=== PATIENT | female | born 1955 | race Caucasian/White ===

== ENCOUNTER → 2020-03-15 15:31 | Outpatient (CLI) | payer MEDICAID, SELFPAY ==
[2020-03-15 15:29] VITALS: BMI 32.5
--- NOTE | 2020-03-15 15:32 | RAD_ITS ---
STUDY: X-RAY CHEST REASON FOR EXAM: Female, 64 years old. COUGH. PT HAS BEEN EXPOSED TO SOMEONE WITH COVID TECHNIQUE: PA and lateral views of the chest. COMPARISON: None. FINDINGS: Scattered sigmoid diverticula. Hyperinflation. There is no demonstrated pleural abnormality. Normal size heart. Normal mediastinum and morena. Normal visualized pulmonary arteries. Normal visualized aortic arch and descending thoracic aorta. There are diffuse degenerative changes of the visualized thoracic spine. Normal visualized ribs, clavicles, and shoulders. There is no demonstrated abnormality of the visualized soft tissue structures of the upper abdomen. RAD/Chest PA and Lateral IMPRESSION: Hyperinflation. No acute abnormality is seen. Electronically Signed: Lefty Smith, at 15:52 EDT , Service support ,
== END ==
PROVIDERS: PCP Family Medicine; Referring Provider Physician Assistant Surgical; Visit Provider Physician Assistant Surgical
DX: Z20.828 Contact with and (suspected) exposure to other viral communicable diseases (principal)
CPT/HCPCS: 71046

== ENCOUNTER → 2020-03-17 13:24 | Outpatient (CLI) | payer MEDICAID, SELFPAY ==
[2020-03-15 15:29] VITALS: BMI 32.5
== END ==
PROVIDERS: PCP Family Medicine; Referring Provider Physician Assistant Surgical; Visit Provider Physician Assistant Surgical
DX: Z20.828 Contact with and (suspected) exposure to other viral communicable diseases (principal)
CPT/HCPCS: 87635; G2023; U0003

== ENCOUNTER 2023-03-06 11:11 | Inpatient (IN) | payer MEDICARE, MEDICAID, SELFPAY ==
[2023-03-06] VITALS (13 sets, daily range): BP systolic 120–156; BP diastolic 74–120; PULSE 78–113; RESP 14–18; TEMP 36.6–37; O2SAT 72–94; BMI 25.7; BMI 25.8
--- NOTE | 2023-03-06 11:29 | EX.ED.DYSGE1 ---
HPI History of Present Illness Chief Complaint: General Illness Informant: patient Onset/Context/Timing Onset: Days Context: Gradual Onset Timing: Continuous Current Severity: Mild Maximum Severity: Moderate Narrative Narrative: 67-year-old female history of hypertension and currently on Suboxone for narcotic prescription abuse. States she has not felt well last several days and has been short of breath. She said she felt lightheaded. With nausea but no vomiting or diarrhea. No melena or fever. Denies any chest pain. No leg pain or swelling. Denies any dysuria. Prior similar symptoms: No Recent Illness/Hospitalization: No PFSH PFSH Medical History Chest pain Difficulty balancing Fatigue Knee pain Severe headache Home Medications buprenorphine 12 mg-naloxone 3 mg sublingual film 12 ea SL DAILY 06/10/17 [History Last Taken Unknown] gabapentin 300 mg capsule 300 mg PO TIDCM 06/10/17 [History Last Taken 06/12/17] lisinopril 2.5 mg tablet 2.5 mg PO DAILY 06/10/17 [History Last Taken 06/12/17] Allergy/AdvReac Type Severity Reaction Status Date / Time cephalexin Allergy Unknown Verified 03/06/23 11:12 Family History Father Liver disease Social History Smoking Status: Current every day smoker tobacco type: cigarettes alcohol intake: never ROS ROS ED ROS Narrative 67-year-old female with generalized malaise. Shortness of breath. Review of Systems ROS Unobtainable: Denies due to encephalopathy Constitutional Constitutional ED: Denies fever(s) Eyes Eyes: Denies blurry vision ENT ENT ED: Denies ear pain Cardiovascular Cardiovascular: Denies chest pain Respiratory/Chest Respiratory/Chest: Reports dyspnea; Denies cough Gastrointestinal Gastrointestinal: Reports nausea; Denies abdominal pain, constipation, diarrhea, melena or vomiting Genitourinary Genitourinary ED: Denies dysuria Musculoskeletal Musculoskeletal: Denies arthralgias Integumentary Denies abscess Neurologic Neurologic: Denies headache(s) Psychiatric Psychiatric: Denies anxiety or depression Endocrine Endocrinology: Denies cold intolerance Hematologic/Lymphatic Hematologic/Lymphatic: Reports none Allergic/Immunologic Allergic/Immunologic ED: Denies mouth swelling or tongue swelling EXAM Physical Exam Narrative Exam Narrative: Well-appearing 67-year-old female. Vital signs stable initial pulse ox was 82% on room air consistent with hypoxia on 4 L again or 92%. She is tachycardic at 113. H EENT exam unremarkable. Dry mucous members. Neck nontender lung JVD. No lymphadenopathy. Lungs few scattered expiratory wheezes. No rales or rhonchi. Equal symmetrical. Heart tachycardic rate about 110 no murmur. Chest were nontender. Abdomen soft nontender. Moving all 4 extremities. Calves are nontender without edema or cords. Neurologically she is awake and alert with no focal motor deficits. Const Vital Signs: 03/06/23 11:12 03/06/23 11:12 03/06/23 11:12 Temperature 98.6 F Temperature Source Temporal Pulse Rate 113 H Respiratory Rate 18 Respiratory Pattern Normal Blood Pressure 156/120 H Blood Pressure Mean 132 Pulse Ox 82 92 Oxygen Delivery Method Room Air Nasal Cannula Oxygen Flow Rate (L/min) 4 03/06/23 11:52 03/06/23 13:26 03/06/23 13:29 Temperature Temperature Source Pulse Rate 94 Respiratory Rate 18 Respiratory Pattern Normal Blood Pressure Blood Pressure Mean Pulse Ox 77 82 Oxygen Delivery Method Room Air Nasal Cannula Oxygen Flow Rate (L/min) 4 03/06/23 13:30 03/06/23 13:30 03/06/23 13:32 Temperature Temperature Source Pulse Rate 89 Respiratory Rate 16 Respiratory Pattern Blood Pressure 120/74 Blood Pressure Mean 89 Pulse Ox 88 93 94 Oxygen Delivery Method Nasal Cannula Nasal Cannula Nasal Cannula Oxygen Flow Rate (L/min) 5 6 6 Positive well nourished and well developed; Negative for obese, cachectic, contractures or unkempt General Appearance ED: well developed and NAD; Negative for unkempt, cachectic, contractures, cyanotic, diaphoretic or pallor Nutritional Appearance: Negative for cachectic or obese HEENT Reports dry mucous membranes Negative for trauma or tenderness Mouth ED: Yes dry mucous membranes Mouth: dry mucous membranes Eyes PERRL and EOMs intact bilaterally General Eye ED: Negative for pale conjunctiva, scleral icterus or other Neck no lymphadenopathy, supple and no JVD General: Negative for tenderness Lymph Lymphatic: Negative for other Chest Wall inspection of chest normal and palpation of chest normal Chest: Negative for other Resp normal respiratory effort and No clear to auscultation bilaterally Auscultation: wheezes Cardio regular rhythm, S1 normal heart sound, S2 normal heart sound and no murmurs; Negative for regular rate Rate: tachycardic GI normal to inspection, nondistended, normoactive bowel sounds, non-tender, non-distended and no masses Inspection: Negative for abdominal distention Auscultation: normoactive bowel sounds Palpation: soft; Negative for tender or guarding Bladder / Kidney Exam: No other Back/Spine no CVA tenderness General Back: Negative for CVA tenderness Cervical Spine: Negative for cervical spine tenderness Thoracic Spine / Upper Back: Negative for thoracic spinal tenderness Lumbar Spine / Lower Back: Negative for lumbar spinal tenderness Extremity normal to inspection General Extremety ED: Negative for edema or tenderness General Extremity: Negative for edema Neuro oriented x3 and CN's II-XII intact bilaterally Sensorium / Orientation: alert; Negative for orientation impaired, lethargic or stuporous Motor Exam: strength 5/5 throughout Psych mental status grossly normal Appearance: Negative for unkempt Attitude: No agitated Mood & Affect: Negative for depressed, anxious or tearful Skin no rashes or lesions noted and no wounds General Skin Exam: Negative for jaundice or pallor Lesions: No lesion noted Rashes: No rashes noted Trauma: Negative for abrasion Wounds: Negative for wounds noted MDM MDM MDM Narrative Medical decision making narrative: 67-year-old female with generalized malaise and shortness of breath is hypoxic. She is currently wheezing she will be given a DuoNeb aerosol. Chest x-ray and screening labs will be obtained. Patient has no prior history of DVT or PE or any risk factors. No leg pain or swelling. No hemoptysis. No recent travel, surgery or immobilization. Patient. DuoNeb aerosol. Her pulse ox remained in the high 70s to low 80s. On 4 to 6 L oxygen she is in the mid 90s. She will be admitted for pneumonia. Started on Rocephin and Zithromax. I spoke to the hospitalist about admission. History & Record Review Discussion w/independent historian: Patient Additional record(s) reviewed:: Prior inpatient record, Prior outpatient record, Prior ED visit and Prior labs Lab Data Attestation: I reviewed the patient's lab results. Lab results narrative: CBC shows white count 20,300. H&H of 14 and 44. Platelet count 329. Electrolytes show sodium 132. Potassium 3.2. Gap of 10. BUN and creatinine 25 and 0.8. Glucose 115. Liver enzymes unremarkable. Chest x-ray suspected right upper lobe pneumonia. Labs: Laboratory Results - last 24 hr 03/06/23 03/06/23 11:45 11:45 WBC 20.3 H RBC 4.68 Hgb 14.6 Hct 44.6 MCV 95.3 MCH 31.2 MCHC 32.7 RDW Std Deviation 43.2 RDW Coeff of Aixa 12.2 Plt Count 329 MPV 10.1 Immature Gran % (Auto) 0.900 Neut % (Auto) 80.1 H Lymph % (Auto) 7.9 L [place] % (Auto) 8.6 Eos % (Auto) 2.1 Baso % (Auto) 0.4 Absolute Neuts (auto) 16.2 H Absolute Lymphs (auto) 1.60 Nucleated RBC % 0 Differential Comment SCANNED Diff Path Review May foll Sodium 132 L Potassium 3.2 L Chloride 93 L Carbon Dioxide 29.0 Anion Gap 10 BUN 25 H Creatinine 0.87 Estim Creat Clear Calc 50.99 Est GFR (MDRD) Af Amer 84 Est GFR (MDRD) Non-Af 69 BUN/Creatinine Ratio 28.8 H Glucose 115 H Calcium 9.9 Total Bilirubin 0.70 AST 22 ALT 26 Alkaline Phosphatase 113 Troponin I High Sens 10 Total Protein 8.6 H Albumin 3.6 Globulin 5.0 H Albumin/Globulin Ratio 0.7 L Radiography Chest X-Ray - ED: 2 View and Read by ED Physician Diagnostic Testing: Clinical Impression(s) from Imaging Studies Chest X-Ray 03/06/23 12:10 IMPRESSION: 1. An area of interstitial prominence and lobularity is seen near the midline of the right upper lobe just above the interlobar fissure which should be evaluated with noncontrast CT to ensure no suspicious or infectious process is present. Otherwise no consolidation is seen. Electronically Signed: Trae Carr MD at 13:26 EDT , Rhythm Strip Rhythm Strip: Sinus Rhythm Rate: 97 Ectopy: None EKG Initial EKG: Attestation: I personally reviewed and interpreted this EKG as follows: Interpretation: Sinus Rhythm and No Acute Injury Pattern Comments: Normal sinus rhythm rate of 97 no acute signs of WI or ischemia. No S1Q3T3. Critical Care Time Critical Care Time: Yes Critical care time (excluding procedures): 30-74 minutes, Including time spent:, Discussing w/Patient &/or Family/Supervisor [place], Discussing w/Consultants, Arranging Admission or Transfer, Performing Direct Patient Care at Bedside and - (35 min) Discharge Plan Triage Chief Complaint: General Illness ED Provider: Claudio Bernard Dx/Rx/DC Orders Clinical Impression: Pneumonia, Hypoxia, Leukocytosis Prescriptions: No Action gabapentin 300 MG capsule 300 mg PO TIDCM lisinopril 2.5 MG tablet 2.5 mg PO DAILY buprenorphine-naloxone 1 EACH film 12 ea SL DAILY Primary Care Provider: Lonnie Francis Referrals: Lonnie Francis MD [Primary Care Provider] - Disposition Disposition: Acute Care [facility]
--- NOTE | 2023-03-06 11:41 | EKG12_ITS ---
Test Reason : SOB Blood Pressure : / mmHG Vent. Rate : 097 BPM Atrial Rate : 097 BPM P-R Int : 120 ms QRS Dur : 068 ms QT Int : 356 ms P-R-T Axes : 072 015 058 degrees QTc Int : 452 ms Normal sinus rhythm Normal ECG Confirmed by BALDEV SHARIF, BRITTNEY ([id number]), production editor JUANITA STEVE ([id number]) on 03/08/2023 8:05:53 AM Referred By: TIMUR Confirmed By:BRITTNEY DE PAZ MD
[2023-03-06] MEDS: Ipratropium/Albuterol Sulfate 3 ML AMPUL.NEB INHALATION ×2 (11:51→19:08)
[2023-03-06 12:01] LABS: Absolute Neutrophil Count 16.2 X10^3/uL (2.0-7.7); Basophil# 0.08 X10^3/uL; Basophil% 0.4 % (0-1); Eosinophil# 0.43 X10^3/uL; Eosinophils% 2.1 % (0-5); Hematocrit 44.6 % (37-47); Hemoglobin 14.6 g/dL (12.0-15.0); Lymphocyte % 7.9 % (19-41); Mean Corp Hgb Conc 32.7 g/dL (32-36); Mean Corpuscular Hgb 31.2 pg (27.0-32.0); Mean Corpuscular Volume 95.3 fL (81-99); Mean Platelet Vol. 10.1 fl (6.2-12.0); Monocyte# 1.75 X10^3/uL; Monocyte% 8.6 % (0-10); NRBC Flagged by Analyzer 0 % (0-5); Neutrophil # 16.21 X10^3/uL (2.7-7.7); Neutrophil % 80.1 % (47-70); POSITIVE DIFFERENTIAL YES; Platelet Count 329 K/mm3 (150-450); RBC Distribution Width CV 12.2 % (11.6-14.6); RBC Distribution Width SD 43.2 fl (35.1-43.9); Red Blood Count 4.68 M/mm3 (4.2-5.4); White Blood Count 20.3 K/mm3 (4.4-11.0)
[2023-03-06 12:02] LABS: Differential Indicated SCAN CRITERIA MET
[2023-03-06] MEDS: 0.9% Normal Saline 1,000 ML 1000 ML IV (12:04)
--- NOTE | 2023-03-06 12:10 | RAD_ITS ---
STUDY: X-RAY CHEST REASON FOR EXAM: Female, 67 years old. cough TECHNIQUE: PA and lateral views of the chest. COMPARISON: March 15, 2020 FINDINGS: An area of interstitial prominence and lobularity is seen near the midline of the right upper lobe just above the interlobar fissure which should be evaluated with noncontrast CT to ensure no suspicious or infectious process is present. Otherwise no consolidation is seen. There is no demonstrated pleural abnormality. Normal size heart. Normal mediastinum and morena. Normal visualized pulmonary arteries. There is atherosclerotic tortuosity of the aortic arch and descending thoracic aorta. There are diffuse degenerative changes of the visualized thoracic spine. There is degenerative osteoarthritis of the bilateral shoulders. There is no demonstrated abnormality of the visualized soft tissue structures of the upper abdomen. RAD/Chest PA and Lateral IMPRESSION: 1. An area of interstitial prominence and lobularity is seen near the midline of the right upper lobe just above the interlobar fissure which should be evaluated with noncontrast CT to ensure no suspicious or infectious process is present. Otherwise no consolidation is seen. Electronically Signed: Trae Carr MD at 13:26 EDT ,
[2023-03-06 12:18] LABS: ALB/GLOB Ratio 0.7 RATIO (0.9-2.4); AST(SGOT) 22 U/L (15-37); Alanine Aminotransfer ALT/SGPT 26 U/L (13-56); Albumin, Serum 3.6 g/dL (3.2-5.0); Alkaline Phosphatase 113 U/L (45-117); Anion Gap 10 (5-15); BUN 25 mg/dL (7-18); BUN/Creat Ratio 28.8 RATIO (10-20); Calcium,Total 9.9 mg/dL (8.5-10.1); Chloride 93 mmol/L (98-107); Creatinine, Serum 0.87 mg/dL (0.55-1.02); EST Glomerular Filtration Rate 69 mL/min (>60); Est Glom Filt Rate - Afr Amer 84 mL/min (>60); Estimated Creatinine Clearance 50.99 ml/min; Glucose 115 mg/dL (74-106); Potassium 3.2 mmol/L (3.5-5.1); Protein, Total 8.6 g/dL (6.4-8.2); Sodium Level 132 mmol/L (136-145); Troponin-I HS 10 pg/mL (3.0-54.0)
[2023-03-06 12:25] LABS: Differential Comment SCANNED
[2023-03-06] MEDS: Ceftriaxone 1 GM/50 ML BAG IV (14:26)
[2023-03-06] MEDS: 0.9% Normal Saline 1,000 ML 999 ML IV (14:26)
--- NOTE | 2023-03-06 14:37 | PCM.HP.STD ---
HPI - General General Date of Admission: 03/06/23 Date of Service: 03/06/23 Chief Complaint: General weakness shortness of breath lightheadedness. HPI Narrative TANIKA GRAHAM, is a 67 F who was brought to ED for generalized weakness and somnolence for about 2 days. She is also short of breath and has not felt well for last couple days. She has been on and off sick for about 2 months. About 2 months ago she had bronchitis with cough, URI and chest congestion and was prescribed Z-Siddharth and steroid and she completed but she did not feel better. Her PCP prescribed 1 more course of a stronger dose which she completed about a month ago. After that she felt well until last Saturday when she felt too tired and weak and mild shortness of breath. She also felt febrile yesterday. She also feel dizzy, lightheaded and has been sleeping for the last 2 days. She has history of smoking cigarette about half to 1 pack since age of 15. She also history of opioid dependence and on Suboxone prescription. She said she forgot to take for 2 days as she was sleeping but she took Suboxone today. She denies any major symptoms of opioid withdrawal including tremors, hallucinations, illusion, seizure anxiety attack, diarrhea or muscle aches. In ED, chest x-ray done and shows infiltrate in right upper lobe. She states he had bronchopneumonia more than a month ago as mentioned above. Past medical history: Chronic nicotine dependence and history of opioid dependence in the past. Hypertension and neuropathy [facility] Medical History Chest pain Difficulty balancing Fatigue Knee pain Severe headache Home Medications buprenorphine 12 mg-naloxone 3 mg sublingual film 1.5 film SL DAILY 06/10/17 [History Last Taken 03/06/23] gabapentin 300 mg capsule 300 mg PO BID NERVE PAIN 06/10/17 [History Last Taken 03/06/23] amlodipine 10 mg tablet 10 mg PO DAILY BP 03/06/23 [History Last Taken 03/06/23] duloxetine 60 mg capsule,delayed release 60 mg PO DAILY DEPRESSION 03/06/23 [History Last Taken 03/06/23] lisinopril 10 mg-hydrochlorothiazide 12.5 mg tablet 1 tab PO DAILY BP 03/06/23 [History Last Taken 03/06/23] Allergy/AdvReac Type Severity Reaction Status Date / Time cephalexin Allergy Unknown Verified 03/06/23 11:12 Family History Father Liver disease Social History Smoking Status: Current every day smoker tobacco type: cigarettes alcohol intake: never ROS ROS Narrative Constitutional: Reports extreme fatigue and weakness. Mild feverish. HEENT: URI symptoms including mild congestion. Reports systems reviewed and no addt'l complaints, except as documented Respiratory/Chest: Admission HPI CVS: Denies history of cardiac disease including PR or cardiac stents. Gastrointestinal: Denies coffee ground emesis, hematemesis or vomiting Genitourinary: Denies burning urination or new urinary tract symptoms Musculoskeletal: Denies acute joint pain or limited range of motion. No acute injury Neurologic: Denies seizure-like symptoms. On gabapentin and duloxetine medication. skin: No ulcer. No rash Endocrinology: Reports systems reviewed and no addt'l complaints, except as documented Hematologic/Lymphatic: Reports systems reviewed and no addt'l complaints, except as documented Rest 14 ROS are negative except as mentioned in HPI Vital Signs Vital Signs Vital Signs: 03/06/23 11:12 03/06/23 11:12 03/06/23 11:12 Temperature 98.6 F Temperature Source Temporal Pulse Rate 113 H Respiratory Rate 18 Respiratory Pattern Normal Blood Pressure 156/120 H Blood Pressure Mean 132 Pulse Ox 82 92 Oxygen Delivery Method Room Air Nasal Cannula Oxygen Flow Rate (L/min) 4 03/06/23 11:52 03/06/23 13:26 03/06/23 13:29 Temperature Temperature Source Pulse Rate 94 Respiratory Rate 18 Respiratory Pattern Normal Blood Pressure Blood Pressure Mean Pulse Ox 77 82 Oxygen Delivery Method Room Air Nasal Cannula Oxygen Flow Rate (L/min) 4 03/06/23 13:30 03/06/23 13:30 03/06/23 13:32 Temperature Temperature Source Pulse Rate 89 Respiratory Rate 16 Respiratory Pattern Blood Pressure 120/74 Blood Pressure Mean 89 Pulse Ox 88 93 94 Oxygen Delivery Method Nasal Cannula Nasal Cannula Nasal Cannula Oxygen Flow Rate (L/min) 5 6 6 03/06/23 13:53 Temperature 97.8 F Temperature Source Temporal Pulse Rate 78 Respiratory Rate 16 Respiratory Pattern Blood Pressure 122/91 H Blood Pressure Mean 101 Pulse Ox 93 Oxygen Delivery Method Nasal Cannula Oxygen Flow Rate (L/min) 2 Weight Weight: 140 lb 9.6 oz Body Mass Index (BMI) 25.7 Physical Exam Narrative General: Alert, Oriented x3, Cooperative HEENT: Atraumatic, PERRLA, EOMI, Normocephalic Oral: Oral mucosa dry. No Gingival or Mucosal Lesions/ Ulcerations/erythema or inflammation Neck: Supple, No JVD, Negative Carotid Bruits Lungs: Air entry severely diminished in bilateral lung bases. Bilateral coarse crepitation Cardiovascular: Mild sinus tachycardia, Normal S1, Normal S2, No murmurs Abdomen: Bowel Sounds Present, Soft, Non Tender, Non-Distended : No renal angle tenderness. No suprapubic tenderness. Extremities: No edema, Capillary Refill Less than 3 Seconds Skin: No rashes, No breakdown Musculoskeletal: No Tenderness to Palpation of Joints or Extremities. ROM intact. Muscle strength 5/5 at major joints. Neurological: Cranial nerves II-XII grossly intact, DTR 2+/4 and Symmetrical, Neuro grossly intact Psych/Mental Status: Flat affect. Results Lab / Micro Data Result Diagrams: 03/06/23 11:45 03/06/23 11:45 Labs: Laboratory Results - last 24 hr 03/06/23 11:45: WBC 20.3 H, RBC 4.68, Hgb 14.6, Hct 44.6, MCV 95.3, MCH 31.2, MCHC 32.7, RDW Std Deviation 43.2, RDW Coeff of Aixa 12.2, Plt Count 329, MPV 10.1, Immature Gran % (Auto) 0.900, Neut % (Auto) 80.1 H, Lymph % (Auto) 7.9 L, [place] % (Auto) 8.6, Eos % (Auto) 2.1, Baso % (Auto) 0.4, Absolute Neuts (auto) 16.2 H, Absolute Lymphs (auto) 1.60, Nucleated RBC % 0, Differential Comment SCANNED, Diff Path Review January03/06/23 11:45: Sodium 132 L, Potassium 3.2 L, Chloride 93 L, Carbon Dioxide 29.0, Anion Gap 10, BUN 25 H, Creatinine 0.87, Estim Creat Clear Calc 50.99, Est GFR (MDRD) Af Amer 84, Est GFR (MDRD) Non-Af 69, BUN/Creatinine Ratio 28.8 H, Glucose 115 H, Calcium 9.9, Total Bilirubin 0.70, AST 22, ALT 26, Alkaline Phosphatase 113, Troponin I High Sens 10, Total Protein 8.6 H, Albumin 3.6, Globulin 5.0 H, Albumin/Globulin Ratio 0.7 L Micro: Microbiology 03/06/23 11:45 Nasal Secretion SARS-CoV-2 & FLU Antigen (Rapid) - Final Rhythm Strip Rhythm Strip: Sinus Rhythm Rate: 97 Ectopy: None Radiology Impression Chest X-Ray 03/06/23 12:10 IMPRESSION: 1. An area of interstitial prominence and lobularity is seen near the midline of the right upper lobe just above the interlobar fissure which should be evaluated with noncontrast CT to ensure no suspicious or infectious process is present. Otherwise no consolidation is seen. Electronically Signed: Trae Carr MD at 13:26 EDT , Assessment & Plan Assessment/Plan (1) Pneumonia: PLAN: Plan This 67-year-old female is being admitted for atypical symptoms of pneumonia including mild shortness of breath and feverish but had recent bronchopneumonia about 1 to 2 months ago. 1. Right upper lobe pneumonia: Patient is being admitted in PCU. She is on 6 L of oxygen with mild cough. Chest x-ray individually reviewed and shows mild infiltrate/laboratory in the right upper lobe and above interlobar fissure. CT angiogram ordered as patient was somnolent did not move for 2 to 3 days and sinus tachycardia, modified Wells criteria 3. CT also will also elucidate about the lobularity/interstitial prominence seen in chest x-ray. Patient started on IV ceftriaxone and Zithromax. Patient has allergy unknown of cephalexin but she tolerated in ED therefore will continue ceftriaxone. Pneumonia work-up ordered. 2. Suspected COPD with exacerbation: Patient has mild cough with hypoxia and shortness of breath. IV Solu-Medrol, bronchodilator, incentive spirometry, Pep and Mucinex ordered. 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 Her PCP has prescribed 2 prescriptions 1 of which is albuterol inhaler. Advised follow-up in pulmonary clinic as an outpatient. 3. History of opioid use/dependence in the past with possible history of generalized anxiety disorder: Patient on buprenorphine?naloxone sublingual film, nonformulary but continued as patient is on medication. No major symptoms of acute opioid withdrawal symptoms. Patient on gabapentin and duloxetine continued. 4. Hypertension: Blood pressure was elevated when she came to ED but currently normal. On lisinopril HCTZ continued. 5. Chronic smoker: Patient is smokes about 1 pack per daily. Nicotine patch ordered. Living will/advanced directive/end of life care: Patient does not have living will or advanced directive. After discussion of benefits/risks procedures involved with full code, DNR CC arrest and DNR CC, the patient opted for DNRCC arrest with no intubation. She does not want intubation ventilator as a last resort to save her if noninvasive pressure ventilation fails. Patient doesn't want artificial life support including intubation, tube feed, ventilator and/chest compression, central venous catheter, vasopressor and DC shock if needed Total time spent in [id number] encounter in discussion of advanced directive 17 minutes. Microbiology Past 72 Hours 03/06/23 11:45 Nasal Secretion SARS-CoV-2 & FLU Antigen (Rapid) - Final Laboratory Results 03/06/23 11:45: WBC 20.3 H, RBC 4.68, Hgb 14.6, Hct 44.6, MCV 95.3, MCH 31.2, MCHC 32.7, RDW Std Deviation 43.2, RDW Coeff of Aixa 12.2, Plt Count 329, MPV 10.1, Immature Gran % (Auto) 0.900, Neut % (Auto) 80.1 H, Lymph % (Auto) 7.9 L, [place] % (Auto) 8.6, Eos % (Auto) 2.1, Baso % (Auto) 0.4, Absolute Neuts (auto) 16.2 H, Absolute Lymphs (auto) 1.60, Nucleated RBC % 0, Differential Comment SCANNED, Diff Path Review January03/06/23 11:45: Sodium 132 L, Potassium 3.2 L, Chloride 93 L, Carbon Dioxide 29.0, Anion Gap 10, BUN 25 H, Creatinine 0.87, Estim Creat Clear Calc 50.99, Est GFR (MDRD) Af Amer 84, Est GFR (MDRD) Non-Af 69, BUN/Creatinine Ratio 28.8 H, Glucose 115 H, Calcium 9.9, Total Bilirubin 0.70, AST 22, ALT 26, Alkaline Phosphatase 113, Troponin I High Sens 10, Total Protein 8.6 H, Albumin 3.6, Globulin 5.0 H, Albumin/Globulin Ratio 0.7 L 03/06/23 11:45: Phosphorus Pending, Magnesium Pending Clinical Impression(s) from Imaging Studies Chest X-Ray 03/06/23 12:10 IMPRESSION: 1. An area of interstitial prominence and lobularity is seen near the midline of the right upper lobe just above the interlobar fissure which should be evaluated with noncontrast CT to ensure no suspicious or infectious process is present. Otherwise no consolidation is seen. Electronically Signed: Trae Carr MD at 13:26 EDT Reading Location ID and State: [facility] / [place] , Service support , Charges/Coding Visit Charges Inpatient E&M: 76628 Init Hosp L3 Procedures Hospitalists Procedures: 96569 Advncd Care Plan 30 Min
--- NOTE | 2023-03-06 15:07 | CT_ITS ---
STUDY: CTA CHEST REASON FOR EXAM: Female, 67 years old. R/O PE -- SOB, Pneumonia,LUNG TUMOR RADIATION DOSAGE (If Supplied By Facility): CTDIvol = ( 6.09 ) mGy, DLP = ( 267.33 ) mGycm TECHNIQUE: The examination was performed with the intravenous administration of IV 100mL Isovue-370. Post-processing of the angiographic images was performed, with multiplanar reformation and 3D reconstruction. Individualized dose optimization techniques were used for this CT. COMPARISON: FINDINGS: Normal enhancement of the main pulmonary artery and right and left pulmonary arteries. Normal enhancement of the bilateral peripheral pulmonary arteries. There is no demonstrated pulmonary embolism. Normal thoracic aorta and visualized great vessels. There is no demonstrated aortic dissection. Normal heart and pericardium. Mild adenopathy in the mediastinum. Normal hilar regions. Normal visualized trachea and bronchi. The lungs are well expanded. Patchy bilateral infiltrates. Normal pleura. Normal chest wall structures. Degenerative vertebral changes. Normal visualized upper abdomen. CT/CTA Chest W/WO Contrast IMPRESSION: No demonstrated pulmonary embolism or arterial dissection. Bilateral patchy infiltrates. Mild mediastinal adenopathy. Electronically Signed: Velasquez Atkinson DO at 18:25 EDT Reading Location ID and State: [facility] / [place] Tel [phone], Service support ,
[2023-03-06 15:10] LABS: Magnesium 2.2 mg/dL (1.6-2.6); Phosphorus 2.5 mg/dL (2.5-4.9)
[2023-03-06] MEDS: KCL 20MEQ in 0.9% NS 20 MEQ/1,000 ML IV.SOLN. 75 MEQ IV (16:38)
[2023-03-06] MEDS: Potassium Chloride Oral Tablet 20 MEQ 40 MEQ PO ×2 (16:45→18:13)
[2023-03-06] MEDS: guaiFENesin 1,200 MG Tablet 1200 MG PO ×2 (16:45→20:31)
[2023-03-06] MEDS: Enoxaparin 40 MG/0.4 ML Syringe SC (16:45)
[2023-03-06] MEDS: Gabapentin 300 MG Capsule PO (18:13)
[2023-03-06] MEDS: Senna/Docusate Sodium 1 Tablet 2 TABLET PO (20:31)
[2023-03-06] MEDS: Methylprednisolone Sod Succ 40 MG/ML VIAL IV (20:31)
[2023-03-06] MEDS: BUPRENORPHINE HCL/NALOXONE HCL 1 EACH FILM 1.5 EACH SL (20:35)
[2023-03-06 20:48] LABS: Bacteria 0 SEEN /hpf (None Seen); Mucous, Urine 0 SEEN /hpf (<or=2+)
[2023-03-06 21:03] LABS: Color, Urine Yellow (Yellow); Glucose, Dipstick Normal (Normal); Leukocyte Esterase-Dipstick Negative /ul (Negative); Nitrite-Dipstick Negative (Negative); Occult Blood-Urine 150 /ul (Negative); Protein-Dipstick 30 mg/dl (Negative); Specific Gravity, Urine 1.015 (1.002-1.030); Urine Bilirubin Dipstick Negative (Negative); Urine Clarity Sl. Cloudy (Clear); Urine Urobilinogen Normal (Normal)
[2023-03-06 21:30] LABS: Ketone-Dipstick 150 mg/dl (Negative)
[2023-03-06 21:32] LABS: Red Blood Cells-Urine 10-25 SEEN /hpf (0-5); White Blood Cells 0-5 SEEN /hpf (0-5)
[2023-03-06 21:33] LABS: Amorphous Sediment 1+ URATE; Squamous Epithelial Cells - UA 0-5 SEEN /hpf (5-10)
[2023-03-07] VITALS (10 sets, daily range): BP systolic 109–131; BP diastolic 59–79; PULSE 82–98; RESP 16–20; TEMP 36.3–37; O2SAT 92–97
[2023-03-07] MEDS: Ipratropium/Albuterol Sulfate 3 ML AMPUL.NEB INHALATION ×4 (01:45→19:29)
[2023-03-07] MEDS: KCL 20MEQ in 0.9% NS 20 MEQ/1,000 ML IV.SOLN. 75 MEQ IV (05:33)
[2023-03-07] MEDS: Methylprednisolone Sod Succ 40 MG/ML VIAL IV ×3 (05:35→21:59)
[2023-03-07 06:57] LABS: Thyroid Stim Hormone (TSH) 0.49 uIU/mL (0.358-3.74)
[2023-03-07 07:36] LABS: Anion Gap 6 (5-15); BUN 14 mg/dL (7-18); BUN/Creat Ratio 21.7 RATIO (10-20); Calcium,Total 9.4 mg/dL (8.5-10.1); Chloride 103 mmol/L (98-107); Creatinine, Serum 0.64 mg/dL (0.55-1.02); EST Glomerular Filtration Rate 98 mL/min (>60); Est Glom Filt Rate - Afr Amer 119 mL/min (>60); Estimated Creatinine Clearance 69.31 ml/min; Glucose 121 mg/dL (74-106); Magnesium 2.3 mg/dL (1.6-2.6); Phosphorus 2.5 mg/dL (2.5-4.9); Potassium 4.3 mmol/L (3.5-5.1); Sodium Level 139 mmol/L (136-145)
[2023-03-07 07:47] LABS: Absolute Lymphocyte Count 0.64 X10^3/uL (0.83-4.51); Absolute Neutrophil Count 11.2 X10^3/uL (2.0-7.7); Basophil# 0.04 X10^3/uL; Basophil% 0.3 % (0-1); Eosinophil# 0.73 X10^3/uL; Eosinophils% 5.5 % (0-5); Hematocrit 38.8 % (37-47); Hemoglobin 12.2 g/dL (12.0-15.0); Lymphocyte # 0.64 X10^3/ul (0.83-4.51); Lymphocyte % 4.8 % (19-41); Mean Corp Hgb Conc 31.4 g/dL (32-36); Mean Corpuscular Hgb 30.7 pg (27.0-32.0); Mean Corpuscular Volume 97.5 fL (81-99); Mean Platelet Vol. 9.9 fl (6.2-12.0); Monocyte# 0.48 X10^3/uL; Monocyte% 3.6 % (0-10); NRBC Flagged by Analyzer 0 % (0-5); Neutrophil # 11.23 X10^3/uL (2.7-7.7); Neutrophil % 84.7 % (47-70); POSITIVE MORPHOLOGY YES; Platelet Count 303 K/mm3 (150-450); RBC Distribution Width CV 12.1 % (11.6-14.6); RBC Distribution Width SD 43.8 fl (35.1-43.9); Red Blood Count 3.98 M/mm3 (4.2-5.4); White Blood Count 13.3 K/mm3 (4.4-11.0)
[2023-03-07 08:08] LABS: Differential Indicated SCAN CRITERIA MET
[2023-03-07] MEDS: Gabapentin 300 MG Capsule PO ×3 (08:27→17:04)
[2023-03-07] MEDS: amLODIPine 10 MG Tablet PO (08:31)
[2023-03-07] MEDS: Senna/Docusate Sodium 1 Tablet 2 TABLET PO (08:31)
[2023-03-07] MEDS: DULoxetine Hcl 60 MG Capsule PO (08:32)
[2023-03-07] MEDS: guaiFENesin 1,200 MG Tablet 1200 MG PO ×2 (08:32→21:58)
[2023-03-07] MEDS: Enoxaparin 40 MG/0.4 ML Syringe SC (08:32)
[2023-03-07] MEDS: Lisinopril 10 MG Tablet PO (08:33)
[2023-03-07 08:51] LABS: Differential Comment SCANNED
[2023-03-07] MEDS: BUPRENORPHINE HCL/NALOXONE HCL 1 EACH FILM 1.5 EACH SL (08:53)
[2023-03-07 09:37] LABS: Pathologist Review Reviewed
--- NOTE | 2023-03-07 11:20 | CASEMGMT ---
RN?CM?GRADUATE CIVIL ENGINEER?CM?to room to meet with patient for initial transition planning/care coordination?assessment.?RN?CM?introduced self and role at [facility].? Pt voices understanding and consents to?assessment?at this time.? Pt resting in bed in no distress at this time.? Pt is A/O at this time and answers all questions appropriately.?? Care providers, pharmacy, and demographics verified/updated at this time. PCP: Dr Francis Specialists: Dr Washington @ in [place] (For Subaxone). Pt states she checks in every other Thurs w/[place] @ the building. Preferred Pharmacy: [facility] @ [place] [facility], she uses [facility] home delivery. Insurance: [facility] Dual Prescription Benefit:?Yes Living Will/HPOA:?Pt does not currently have LW/HCPOA and interested in completing. Shereen MALDONADO, aware. LNOK: Sister, Vannesa. Living Arrangements: Lives alone in one-story home w/one small step to enter into the home w/an additional 7 steps from where she cui. Indep w/ADL's and IADL's. Works part-time. Transportation:?Pt states drives self and states no transportation concerns at this time.?Sis or bro-in-law will take her home @ [place]. DME: ? Denies using any DME and denies needs.?No home O2 and does not have a pulse ox. Discussed Home O2 process, should she qualify for it. Verbal review of local DME co's and made aware [employer] is affiliated w/[facility]. Pt chooses [employer]. Recommended a pulse ox. Pt states she can afford to purchase one and made aware of locations one can be found. HHC/SNF: No hx of either. Denies need for HHC and no needs identified. Pt wishes to return home and states has no concerns with going home at time of discharge.? Pt states she smokes 1/2- 1 PPD but plans to quit now. ?CM?to follow for home oxygen needs and any further discharge planning/needs.? Pt voices no further concerns/needs at this time.? Advised pt to ask for?CM?if any further questions/concerns/needs arise.? Voices understanding. PLAN:??Home. Follow for possible Home O2 @ d/c. Delvin FRAZIERN?RN?CM
--- NOTE | 2023-03-07 11:39 | PN.HOSP_ITS ---
Reason for Visit Reason for Visit: Diagnoses Pneumonia, unspecified organism (03/06/23) Subjective Subjective Patient just returning to bed from bathroom upon visit, O2 in place at 4lpm via NC and extension tubing; patient denies increased work of breathing but acknowledges that she is breathing faster than normal. Patient is pleasant, cooperative, and interactive w/staff. States that compared to when I came in, I feel like a 9.5 now, with 10 being I feel absolutely great. Objective Data Objective Data Vital Signs: Vital Signs Temp Pulse Resp BP Pulse Ox O2 Del Method O2 Flow Rate 98.6 F 85 16 131/79 H 92 Nasal Cannula 4 03/07/23 08:26 03/07/23 08:26 03/07/23 08:26 03/07/23 08:26 03/07/23 08:26 03/07/23 09:56 03/07/23 09:56 Oxygen Flow Rate (L/min) 4 Oxygen Delivery Method Nasal Cannula Weight: 64 kg Body Mass Index (BMI) 25.8 Intake & Output: Intake and Output for Last 24 Hours 03/05/23 03/06/23 03/07/23 23:59 23:59 23:59 Intake Total 2305 / 2305 305 / 305 Output Total 300 / 300 Balance 2004 305 / 305 Lab / Micro Data Result Diagrams: 03/07/23 04:48 03/07/23 04:48 Labs: Laboratory Results - last 24 hr 03/06/23 11:45: WBC 20.3 H, RBC 4.68, Hgb 14.6, Hct 44.6, MCV 95.3, MCH 31.2, MCHC 32.7, RDW Std Deviation 43.2, RDW Coeff of [place]ix[place] 12.2, Plt Count 329, MPV 10.1, Immature Gran % (Auto) 0.900, Neut % (Auto) 80.1 H, Lymph % (Auto) 7.9 L, [place] % (Auto) 8.6, Eos % (Auto) 2.1, Baso % (Auto) 0.4, Absolute Neuts (auto) 16.2 H, Absolute Lymphs (auto) 1.60, Nucleated RBC % 0, Differential Comment SCANNED, Diff Path Review Reviewed 03/06/23 11:45: Sodium 132 L, Potassium 3.2 L, Chloride 93 L, Carbon Dioxide 29.0, Anion Gap 10, BUN 25 H, Creatinine 0.87, Estim Creat Clear Calc 50.99, Est GFR (MDRD) Af Amer 84, Est GFR (MDRD) Non-Af 69, BUN/Creatinine Ratio 28.8 H, Glucose 115 H, Calcium 9.9, Total Bilirubin 0.70, AST 22, ALT 26, Alkaline Phosphatase 113, Troponin I High Sens 10, Total Protein 8.6 H, Albumin 3.6, Globulin 5.0 H, Albumin/Globulin Ratio 0.7 L 03/06/23 11:45: Phosphorus 2.5, Magnesium 2.2 03/06/23 15:15: Urine Color Yellow, Urine Clarity Sl. Cloudy, Urine pH 5.0, Ur Specific [place] 1.015, Urine Protein 30 H, Urine Glucose (UA) Normal, Urine Ketones 150 A*, Urine Occult Blood 150 H, Urine Nitrite Negative, Urine Biliru bin Negative, Urine Urobilinogen Normal, Ur Leukocyte Esterase Negative, Urine RBC 10-25 SEEN, Urine WBC 0-5 SEEN, Ur Squamous Epith Cells 0-5 SEEN, Amorphous Sediment 1+ URATE, Urine Bacteria 0 SEEN, Urine Mucus 0 SEEN 03/06/23 15:35: COVID-19 (DARIN) Not Detected 03/07/23 04:48: TSH 0.49 03/07/23 04:48: WBC 13.3 H, RBC 3.98 L, Hgb 12.2, Hct 38.8, MCV 97.5, MCH 30.7, MCHC 31.4 L, RDW Std Deviation 43.8, RDW Coeff of [place]ix[place] 12.1, Plt Count 303, MPV 9.9, Immature Gran % (Auto) 1.100 H, Neut % (Auto) 84.7 H, Lymph % (Auto) 4.8 L, [place] % (Auto) 3.6, Eos % (Auto) 5.5 H, Baso % (Auto) 0.3, Absolute Neuts (auto) 11.2 H, Absolute Lymphs (auto) 0.64 L, Nucleated RBC % 0, Differential Comment SCANNED 03/07/23 04:48: Sodium 139, Potassium 4.3, Chloride 103, Carbon Dioxide 30.0, Anion Gap 6, BUN 14, Creatinine 0.64, Estim Creat Clear Calc 69.31, Est GFR (MDRD) Af Amer 119, Est GFR (MDRD) Non-Af 98, BUN/Creatinine Ratio 21.7 H, Glucose 121 H, Calcium 9.4, Phosphorus 2.5, Magnesium 2.3 Micro: Microbiology 03/06/23 15:35 Mucosa - Nose Respiratory Panel (PCR) - Final Rhinovirus 03/06/23 15:15 Urine, Clean Catch Legionella Antigen - Final 03/06/23 15:15 Urine, Clean Catch Streptococcus pneumoniae Antigen (M - Final 03/06/23 11:45 Nasal Secretion SARS-CoV-2 & FLU Antigen (Rapid) - Final Radiography Diagnostic Testing: Radiology Impression Chest X-Ray 03/06/23 12:10 IMPRESSION: 1. An area of interstitial prominence and lobularity is seen near the midline of the right upper lobe just above the interlobar fissure which should be evaluated with noncontrast CT to ensure no suspicious or infectious process is present. Otherwise no consolidation is seen. Electronically Signed: Trae Carr MD at 13:26 EDT , Chest CTA 03/06/23 15:07 IMPRESSION: No demonstrated pulmonary embolism or arterial dissection. Bilateral patchy infiltrates. Mild mediastinal adenopathy. Electronically Signed: Velasquez Atkinson DO at 18:25 EDT , Rhythm Strip Rhythm Strip: Sinus Rhythm Rate: 97 Ectopy: None Physical Exam Const Constitutional Narrative: Alert, oriented x3,average body habitus, pleasant, and cooperative with staff. HEENT head/scalp atraumatic and moist oral mucous membranes Eyes PERRL and EOMs intact bilaterally Neck supple and no JVD Chest Chest Narrative: Symmetrical chest wall with equal excursion Resp Resp Narrative: Increased respiratory effort with some use of neck and shoulder accessory muscle status post ambulation. Lung sounds are clear throughout but diminished with limited air movement in the right upper lobe anterior and posterior. Productive cough at times, sputum clear. Cardio regular rate, regular rhythm, S1 normal heart sound, S2 normal heart sound, no murmurs, no rub and no gallops GI normal to inspection, nondistended, normoactive bowel sounds, soft to palpation and non-tender; Negative for hepatosplenomegaly Back/Spine normal ROM Extremity normal to inspection, full ROM and no clubbing, cyanosis or edema Neuro CN's II-XII intact bilaterally, moves all extremities, no focal motor deficits and no sensory deficits noted Motor Exam: strength 5/5 throughout Psych affect normal Assessment & Plan Assessment/Plan (1) Pneumonia: (2) Hypoxia: (3) Leukocytosis: (4) URI, acute: PLAN: Plan 1. Pneumonia secondary to acute URI/leukocytosis/hypoxia - CXR showing right upper lobe interstitial prominence, correlated with leukocytosis and physical exam findings on admission represent pneumonia - 03/07: leukocytosis reducing, continue azithromycin and ceftriaxone - positive for Rhino virus, maintain Droplet precautions - demonstrates increase in work of breathing w/exertion and requiring oxygen to maintain pulse oximetry greater than 92%; oxygen delivery reduced from 6L to 4L this AM and patient tolerated well - patient on albuterol at home for reportedly borderline COPD diagnosis from smoking; she denies having a medical insurance clerk and states that rescue inhaler comes from PCP. - continue albuterol INH and steroid - recommended pulmonology follow up - pt demonstrating appropriate use of PEP devices 2. opioid dependence/narcotic prescription abuse - pt states being clean of prescription opioids for eight years now, routinely participates in counseling for history of opioid abuse and regularly takes her Suboxone and does routine urine drug tests thru her counseling program 3. neuropathy - patient has a history of back injury that led to opioid abuse, residual nerve pain to bilateral lower extremities at times - continue home regimen of gabapentin 4. hypertension - BPs trending 110-133/74-91mmHg - continue home regimen of lisinopril 5. depression - pt denies anhedonia; is pleasant and interactive with staff; no flat affect noted - continue home regimen of duloxetine 6. tobacco dependence - patient admittedly smokes 1/2 to 1 ppd and has smoked since she was 15 years old; she denies having any desire to stop - counseled on cessation DVT: Lovenox
--- NOTE | 2023-03-07 11:54 | PN.HOSP_ITS ---
Subjective Subjective Feels a little bit better today, still some shortness of breath. Her white count is improved. Objective Data Objective Data Vital Signs: Vital Signs Temp Pulse Resp BP Pulse Ox O2 Del Method O2 Flow Rate 98.6 F 85 16 131/79 H 92 Nasal Cannula 4 03/07/23 08:26 03/07/23 08:26 03/07/23 08:26 03/07/23 08:26 03/07/23 08:26 03/07/23 09:56 03/07/23 09:56 Oxygen Flow Rate (L/min) 4 Oxygen Delivery Method Nasal Cannula Weight: 141 lb 1.533 oz Body Mass Index (BMI) 25.8 Intake & Output: Intake and Output for Last 24 Hours 03/06/23 03/07/23 03/08/23 03:59 03:59 03:59 Intake Total 2305 / 2305 305 / 305 Output Total 300 / 300 Balance 2004 305 / 305 Lab / Micro Data Result Diagrams: 03/07/23 04:48 03/07/23 04:48 Labs: Laboratory Results - last 24 hr 03/06/23 11:45: WBC 20.3 H, RBC 4.68, Hgb 14.6, Hct 44.6, MCV 95.3, MCH 31.2, MCHC 32.7, RDW Std Deviation 43.2, RDW Coeff of Aixa 12.2, Plt Count 329, MPV 10.1, Immature Gran % (Auto) 0.900, Neut % (Auto) 80.1 H, Lymph % (Auto) 7.9 L, [place] % (Auto) 8.6, Eos % (Auto) 2.1, Baso % (Auto) 0.4, Absolute Neuts (auto) 16.2 H, Absolute Lymphs (auto) 1.60, Nucleated RBC % 0, Differential Comment SCANNED, Diff Path Review Reviewed 03/06/23 11:45: Sodium 132 L, Potassium 3.2 L, Chloride 93 L, Carbon Dioxide 29.0, Anion Gap 10, BUN 25 H, Creatinine 0.87, Estim Creat Clear Calc 50.99, Est GFR (MDRD) Af Amer 84, Est GFR (MDRD) Non-Af 69, BUN/Creatinine Ratio 28.8 H, Glucose 115 H, Calcium 9.9, Total Bilirubin 0.70, AST 22, ALT 26, Alkaline Phosphatase 113, Troponin I High Sens 10, Total Protein 8.6 H, Albumin 3.6, Globulin 5.0 H, Albumin/Globulin Ratio 0.7 L 03/06/23 11:45: Phosphorus 2.5, Magnesium 2.2 03/06/23 15:15: Urine Color Yellow, Urine Clarity Sl. Cloudy, Urine pH 5.0, Ur Specific [place] 1.015, Urine Protein 30 H, Urine Glucose (UA) Normal, Urine Ketones 150 A*, Urine Occult Blood 150 H, Urine Nitrite Negative, Urine Bilirubin Negative, Urine Urobilinogen Normal, Ur Leukocyte Esterase Negative, Urine RBC 10-25 SEEN, Urine WBC 0-5 SEEN, Ur Squamous Epith Cells 0-5 SEEN, Amorphous Sediment 1+ URATE, Urine Bacteria 0 SEEN, Urine Mucus 0 SEEN 03/06/23 15:35: COVID-19 (DARIN) Not Detected 03/07/23 04:48: TSH 0.49 03/07/23 04:48: WBC 13.3 H, RBC 3.98 L, Hgb 12.2, Hct 38.8, MCV 97.5, MCH 30.7, MCHC 31.4 L, RDW Std Deviation 43.8, RDW Coeff of Aixa 12.1, Plt Count 303, MPV 9.9, Immature Gran % (Auto) 1.100 H, Neut % (Auto) 84.7 H, Lymph % (Auto) 4.8 L, [place] % (Auto) 3.6, Eos % (Auto) 5.5 H, Baso % (Auto) 0.3, Absolute Neuts (auto) 11.2 H, Absolute Lymphs (auto) 0.64 L, Nucleated RBC % 0, Differential Comment SCANNED 03/07/23 04:48: Sodium 139, Potassium 4.3, Chloride 103, Carbon Dioxide 30.0, Anion Gap 6, BUN 14, Creatinine 0.64, Estim Creat Clear Calc 69.31, Est GFR (MDRD) Af Amer 119, Est GFR (MDRD) Non-Af 98, BUN/Creatinine Ratio 21.7 H, Glucose 121 H, Calcium 9.4, Phosphorus 2.5, Magnesium 2.3 Micro: Microbiology 03/06/23 15:35 Mucosa - Nose Respiratory Panel (PCR) - Final Rhinovirus 03/06/23 15:15 Urine, Clean Catch Legionella Antigen - Final 03/06/23 15:15 Urine, Clean Catch Streptococcus pneumoniae Antigen (M - Final 03/06/23 11:45 Nasal Secretion SARS-CoV-2 & FLU Antigen (Rapid) - Final Radiography Diagnostic Testing: Radiology Impression Chest X-Ray 03/06/23 12:10 IMPRESSION: 1. An area of interstitial prominence and lobularity is seen near the midline of the right upper lobe just above the interlobar fissure which should be evaluated with noncontrast CT to ensure no suspicious or infectious process is present. Otherwise no consolidation is seen. Electronically Signed: Trae Carr MD at 13:26 EDT , Chest CTA 03/06/23 15:07 IMPRESSION: No demonstrated pulmonary embolism or arterial dissection. Bilateral patchy infiltrates. Mild mediastinal adenopathy. Electronically Signed: Velasquez Atkinson DO at 18:25 EDT , Rhythm Strip Rhythm Strip: Sinus Rhythm Rate: 97 Ectopy: None Physical Exam Narrative General: Alert, Oriented x3, Cooperative, No apparent distress HEENT: Atraumatic, PERRLA, EOMI, Normocephalic Oral: Moist Mucosa Neck: Supple, No JVD Lungs: Diminished, poor air movement, No rhonchi, No wheeze, No rales Cardiovascular: Regular rate, Regular Rhythm, Normal S1, Normal S2, No murmurs Abdomen: Soft, Non Tender, Non-Distended, No Hepato-splenomegaly Extremities: No edema, Capillary Refill Less than 3 Seconds Skin: No rashes, No breakdown Musculoskeletal: No Tenderness to Palpation of Joints or Extremities Neurological: Motor Exam 5/5 strength throughout, Sensory exam intact to light touch and pain Psych/Mental Status: Normal Affect, Appropriate Assessment & Plan Assessment/Plan (1) Pneumonia: PLAN: Plan 1. Right upper lobe pneumonia/COPD exacerbation ? She does have increased shortness of breath and poor air movement ? Continue with steroids, inhalers, and antibiotics ? She is positive for rhinovirus and sputum cultures pending ? She does state that she uses her rescue inhaler 3-4 times a day and she does not have a canned food reconditioning inspector, she does need to be followed up with a canned food reconditioning inspector as an outpatient to obtain PFTs have maintenance inhalers 2. HTN ? Stable ? Continue with her home blood pressure medications 3. History of opioid use/anxiety/depression ? Stable ? Continue with her Cymbalta and her Subutex DVT: Lovenox Charges/Coding Visit Charges Inpatient E&M: 35701 Subs Hosp L2
[2023-03-07] MEDS: BUPRENORPHINE HCL/NALOXONE HCL 1 EACH FILM 0.5 EACH SL ×2 (13:46→22:03)
--- NOTE | 2023-03-07 14:01 | CASEMGMT ---
Sw presented to bedside, introduced self to patient and explained sw role during admission. Sw completed SDOH with patient. SDOH triggered for concerns with housing. Patient reports that her concerns with her housing are that she is worried that the air is very dry and that is what is causing her medical issues. Patient reports that her landlord will assist with things that need to be fixed, and he did get new heating and cooling elements. Patient states that sometimes the heater is still not the best so she uses a space heater to help heat her apartment. Patient states that because she uses the space heater it makes the air extra dry in the apartment. Sw agreed to look into resources that may be able to assist with this. Sw also assisted patient in completing Advanced Directives including POA and Living Will. Sw made copies and provided those to patient. Sw had copy scanned into patient's medical record. Shereen Em, RESPIRATORY CARE PRACTITIONER, HYPO SPLASHER
[2023-03-08] VITALS (7 sets, daily range): BP systolic 115–137; BP diastolic 68–80; PULSE 86–100; RESP 18; TEMP 36.4–36.7; O2SAT 86–94; BMI 26.0
[2023-03-08] MEDS: Ipratropium/Albuterol Sulfate 3 ML AMPUL.NEB INHALATION ×3 (01:46→13:03)
[2023-03-08] MEDS: BUPRENORPHINE HCL/NALOXONE HCL 1 EACH FILM 0.5 EACH SL ×2 (05:30→16:00)
--- NOTE | 2023-03-08 10:43 | PCM.PN.HOSP ---
Reason for Visit Reason for Visit: Diagnoses Elevated white blood cell count, unspecified (03/06/23) Acute upper respiratory infection, unspecified (03/06/23) Pneumonia, unspecified organism (03/06/23) Hypoxemia (03/06/23) Subjective Subjective Reports feeling so much better, being independent in her room has helped; denies feeling short of breath; continues on oxygen via NC, down to 3L now. She has noticed that she has the shakes in her hands mostly and related this to not having had a cigarette in a few days. She remains pleasant and cooperative w/staff. Objective Data Objective Data Vital Signs: Vital Signs Temp Pulse Resp BP Pulse Ox O2 Del Method O2 Flow Rate 98.1 F 91 18 115/68 94 Nasal Cannula 3 03/08/23 03:34 03/08/23 06:52 03/08/23 06:52 03/08/23 03:34 03/08/23 06:52 03/08/23 06:52 03/08/23 06:52 Oxygen Flow Rate (L/min) 3 Oxygen Delivery Method Nasal Cannula Weight: 64.6 kg Body Mass Index (BMI) 26.0 Intake & Output: Intake and Output for Last 24 Hours 03/06/23 03/07/23 03/08/23 23:59 23:59 23:59 Intake Total 2305 / 2305 305 / 305 Output Total 300 / 300 600 / 600 700 / 700 Balance 2004 / 2004 -295 / -295 -700 / -700 Lab / Micro Data Result Diagrams: 03/07/23 04:48 03/07/23 04:48 Micro: Microbiology 03/07/23 06:53 Sputum, Expectorated/Coughed Respiratory Culture - Preliminary GNR lactose ad operations specialist 03/06/23 15:35 Mucosa - Nose Respiratory Panel (PCR) - Final Rhinovirus 03/06/23 15:15 Urine, Clean Catch Legionella Antigen - Final 03/06/23 15:15 Urine, Clean Catch Streptococcus pneumoniae Antigen (M - Final 03/06/23 11:45 Nasal Secretion SARS-CoV-2 & FLU Antigen (Rapid) - Final Rhythm Strip Rhythm Strip: Sinus Rhythm Rate: 97 Ectopy: None Physical Exam Const alert, oriented x3, no apparent distress, average body habitus and healthy appearing HEENT head/scalp atraumatic and moist oral mucous membranes Eyes PERRL and EOMs intact bilaterally Neck supple and no JVD Chest inspection of chest normal Chest: symmetrical chest wall rise Resp Resp Narrative: Normal respiratory effort, no retractions, no use of accessory muscles; Expiratory wheezing to bilateral upper lobes, fine rales to left lower lobe; minimally productful cough of clear expectorate. Cardio regular rate, regular rhythm, S1 normal heart sound, S2 normal heart sound, no murmurs, no rub and no gallops GI normal to inspection, nondistended, normoactive bowel sounds, soft to palpation and non-tender; Negative for hepatosplenomegaly Back/Spine normal ROM Extremity normal to inspection and full ROM Neuro CN's II-XII intact bilaterally, moves all extremities, no focal motor deficits and no sensory deficits noted Speech: speech normal Motor Exam: strength 5/5 throughout Psych affect normal Assessment & Plan Assessment/Plan (1) Pneumonia: (2) Hypoxia: (3) Leukocytosis: (4) URI, acute: PLAN: Plan 1. 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 - reportedly uses rescue inhaler several times a day; continue albuterol INH and steroid - recommended pulmonology follow up - encouraged continued use of PEP devices 2. opioid dependence/narcotic prescription abuse - pt states being clean of prescription opioids for eight years now, routinely participates in counseling for history of opioid abuse and regularly takes her Suboxone and does routine urine drug tests thru her counseling program 3. neuropathy - patient has a history of back injury that led to opioid abuse, residual nerve pain to bilateral lower extremities at times - continue home regimen of gabapentin 4. hypertension - SBPs trending 115-137mmHg - continue home regimen of lisinopril ? 5. depression - pt denies anhedonia; denies anxiety at this time; denies feelings of depression, but states that she's getting bored; is pleasant and interactive with staff; no flat affect noted - continue home regimen of duloxetine 6. tobacco dependence - patient admittedly smokes 1/2 to 1 ppd and has smoked since she was 15 years old; she denies having any desire to stop - continue nicotine transdermal patch - counseled on cessation DVT: Lovenox, ambulation
[2023-03-08] MEDS: Enoxaparin 40 MG/0.4 ML Syringe SC (10:48)
[2023-03-08] MEDS: Senna/Docusate Sodium 1 Tablet 2 TABLET PO (11:11)
[2023-03-08] MEDS: DULoxetine Hcl 60 MG Capsule PO (11:11)
[2023-03-08] MEDS: guaiFENesin 1,200 MG Tablet 1200 MG PO (11:11)
[2023-03-08] MEDS: Lisinopril 10 MG Tablet PO (11:11)
[2023-03-08] MEDS: amLODIPine 10 MG Tablet PO (11:11)
[2023-03-08] MEDS: Gabapentin 300 MG Capsule PO (11:11)
--- NOTE | 2023-03-08 11:15 | DCINST_ITS ---
Discharge Instructions Diet Discharge Diet: Low fat / Low cholesterol Activity Discharge Activity: Return to Normal Activity Dressing / Incision Call your doctor if you observe: Fever of 101 or Higher, Shortness of breath, Dizziness, Fainting spells, Swelling in the ankles, Chest pain and Increased palpitations (irregular heartbeat) Follow Up Care Test Results: Test results from this visit will be discussed in further detail at your follow- up appointment, if applicable. Discharge Plan Admission Admit Date/Time: 03/06/23 13:54 Attending Provider: Bentley Cabello Primary Care Provider: Lonnie Francis Consulting Providers: Damien Beckett Discharge Orders/Prescriptions Prescriptions: New azithromycin 500 mg tablet 500 mg PO DAILY 2 Days Qty: 2 0RF Rx Instructions: start on day 2 of therapy amoxicillin-pot clavulanate 875-125 mg tablet 1 tab PO Q12H 4 Days Qty: 8 0RF prednisone 20 mg tablet 40 mg PO DAILY 5 Days Qty: 10 0RF Continued gabapentin 300 MG capsule 300 mg PO BID buprenorphine-naloxone 1 EACH film 1.5 film SL DAILY amlodipine 10 mg tablet 10 mg PO DAILY lisinopril-hydrochlorothiazide 10-12.5 mg tablet 1 tab PO DAILY duloxetine 60 mg capsule,delayed release(DR/EC) 60 mg PO DAILY albuterol sulfate [Ventolin HFA] 90 mcg/actuation HFA aerosol inhaler INHALATION Referrals / Follow Up: Lonnie Francis MD [Primary Care Provider] - Within 1 Week Disposition Disposition (needs filled in before D/C Order can be placed): Home, Self Care
--- NOTE | 2023-03-08 11:49 | PHA.DC.MC ---
Addendum entered and electronically signed by Taryn Caldera 03/08/23 11:50: Per [employer], cephalexin listed as unknown allergy but patient has tolerated ceftriaxone. Augmentin okay. Original Note: Pharmacy Service has performed discharge medication reconciliation and counseling for this patient. 1. AZITHROMYCIN 500MG PO DAILY X 2 DAYS 2. AUGMENTIN 875MG PO BID X 5 DAYS 3. PREDNISONE 40MG PO DAILY X 5 DAYS The patient's discharge medication list was reviewed for discrepancies and discrepancies were resolved. Home Medications buprenorphine 12 mg-naloxone 3 mg sublingual film 1.5 film SL DAILY 06/10/17 gabapentin 300 mg capsule 300 mg PO BID NERVE PAIN 06/10/17 amlodipine 10 mg tablet 10 mg PO DAILY BP 03/06/23 duloxetine 60 mg capsule,delayed release 60 mg PO DAILY DEPRESSION 03/06/23 lisinopril 10 mg-hydrochlorothiazide 12.5 mg tablet 1 tab PO DAILY BP 03/06/23 albuterol sulfate 90 mcg/actuation aerosol inhaler (Ventolin HFA) inhalation SOB 03/07/23 amoxicillin 875 mg-potassium clavulanate 125 mg tablet 1 tab PO Q12H 4 days #8 tabs 03/08/23 azithromycin 500 mg tablet 500 mg PO DAILY 2 days #2 tabs 03/08/23 prednisone 20 mg tablet 40 mg PO DAILY 5 days #10 tabs 03/08/23 The patient was counseled on the following discharge medications and changes in medications for homegoing were reviewed. The Reason for Use, instructions for use, and potential side effects were reviewed for all new medications. The patient's questions regarding all of their medications were answered. The patient was able to verbally demonstrate an understanding of their discharge medications. Patient counseled by student officerWilliam.
--- NOTE | 2023-03-08 12:22 | CASEMGMT ---
RN KASSIE updated that patient will home oxygen at discharge. RN KASSIE received script and sent to [facility] [place]. RICH FERNANDO in to updated patient, patient declined further needs at discharge. Patient had no further questions or concerns at this time.
--- NOTE | 2023-03-08 17:17 | PCM.DC.SUM ---
Providers Date of Admission: 03/06/23 Primary Care Physician: Dr. Lonnie Francis MD Reason For Visit: PNEUMONIA WITH HYPOXIA Diagnosis Discharge Diagnosis (1) Pneumonia: Status: Acute Code(s): J18.9 - Pneumonia, unspecified organism (2) Hypoxia: Status: Acute Code(s): R09.02 - Hypoxemia (3) Leukocytosis: Status: Acute Code(s): D72.829 - Elevated white blood cell count, unspecified (4) URI, acute: Status: Acute Code(s): J06.9 - Acute upper respiratory infection, unspecified Medications at Discharge Home Medications buprenorphine 12 mg-naloxone 3 mg sublingual film 1.5 film SL DAILY 06/10/17 gabapentin 300 mg capsule 300 mg PO BID NERVE PAIN 06/10/17 amlodipine 10 mg tablet 10 mg PO DAILY BP 03/06/23 duloxetine 60 mg capsule,delayed release 60 mg PO DAILY DEPRESSION 03/06/23 lisinopril 10 mg-hydrochlorothiazide 12.5 mg tablet 1 tab PO DAILY BP 03/06/23 albuterol sulfate 90 mcg/actuation aerosol inhaler (Ventolin HFA) inhalation SOB 03/07/23 amoxicillin 875 mg-potassium clavulanate 125 mg tablet 1 tab PO Q12H 4 days #8 tabs 03/08/23 azithromycin 500 mg tablet 500 mg PO DAILY 2 days #2 tabs 03/08/23 prednisone 20 mg tablet 40 mg PO DAILY 5 days #10 tabs 03/08/23 Hospital Course Operations None Procedures None Summary of Care Provided Minutes Spent on Discharge: 35 Hospital Course: Per HPI: TANIKA GRAHAM, is a 67 F who was brought to ED for generalized weakness and somnolence for about 2 days.? She is also short of breath and has not felt well for last couple days.? She has been on and off sick for about 2 months.? About 2 months ago she had bronchitis with cough, URI and chest congestion and was prescribed Z-Siddharth and steroid and she completed but she did not feel better.? Her PCP prescribed 1 more course of a stronger dose which she completed about a month ago.? After that she felt well until last Saturday when she felt too tired and weak and mild shortness of breath.? She also felt febrile yesterday.? She also feel dizzy, lightheaded and has been sleeping for the last 2 days. She has history of smoking cigarette about half to 1 pack since age of 15.? She also history of opioid dependence and on Suboxone prescription.? She said she forgot to take for 2 days as she was sleeping but she took Suboxone today.? She denies any major symptoms of opioid withdrawal including tremors, hallucinations, illusion, seizure anxiety attack, diarrhea or muscle aches. In ED, chest x-ray done and shows infiltrate in right upper lobe.? She states he had bronchopneumonia? more than a month ago as mentioned above. Past medical history: Chronic nicotine dependence and history of opioid dependence in the past.? Hypertension and neuropathy Hospital Course: 1. Right upper lobe pneumonia/COPD exacerbation ? She does have increased shortness of breath and poor air movement ? Continue with steroids, inhalers, and antibiotics ? She is positive for rhinovirus and sputum cultures pending but demonstrates gram-negative sharlene ? She does state that she uses her rescue inhaler 3-4 times a day and she does not have a advanced practice psychiatric nurse, she does need to be followed up with a advanced practice psychiatric nurse as an outpatient to obtain PFTs have maintenance inhalers ? I discussed with her the plan for discharge today, she did require about 3 L nasal cannula for ambulation and she is ambulatory in the home in the community so she does require portable oxygen. She expressed understanding risk benefits going home and like to go home today. I do recommend that she have an outpatient referral for pulmonology once her pulmonary condition stabilizes so she can have pulmonary function testing. We will continue with Entin and azithromycin my well as prednisone for 5 more days 2. HTN ? Stable ? Continue with her home blood pressure medications 3. History of opioid use/anxiety/depression ? Stable ? Continue with her Cymbalta and her Subutex Physical Exam Narrative General: Alert, Oriented x3, Cooperative, No apparent distress HEENT: Atraumatic, PERRLA, EOMI, Normocephalic Oral: Moist Mucosa Neck: Supple, No JVD Lungs: Diminished, normal air movement, No rhonchi, slight wheeze, No rales Cardiovascular: Regular rate, Regular Rhythm, Normal S1, Normal S2, No murmurs Abdomen: Soft, Non Tender, Non-Distended, No Hepato-splenomegaly Extremities: No edema, Capillary Refill Less than 3 Seconds Skin: No rashes, No breakdown Musculoskeletal: No Tenderness to Palpation of Joints or Extremities Neurological: Motor Exam 5/5 strength throughout, Sensory exam intact to light touch and pain Psych/Mental Status: Normal Affect, Appropriate Weight / BMI Weight Weight: 142 lb 6.698 oz Body Mass Index (BMI) 26.0 ABG / Lab / Microbiology Data Result Diagrams: 03/07/23 04:48 03/07/23 04:48 Microbiology: Microbiology 03/07/23 06:53 Sputum, Expectorated/Coughed Gram Stain - Final 03/07/23 06:53 Sputum, Expectorated/Coughed Respiratory Culture - Preliminary GNR lactose slide machine tender 03/06/23 15:35 Mucosa - Nose Respiratory Panel (PCR) - Final Rhinovirus 03/06/23 15:15 Urine, Clean Catch Legionella Antigen - Final 03/06/23 15:15 Urine, Clean Catch Streptococcus pneumoniae Antigen (M - Final 03/06/23 11:45 Nasal Secretion SARS-CoV-2 & FLU Antigen (Rapid) - Final D/C Instructions Discharge Diet: Low fat / Low cholesterol Call your doctor if you observe: Fever of 101 or Higher, Shortness of breath, Dizziness, Fainting spells, Swelling in the ankles, Chest pain and Increased palpitations (irregular heartbeat) Meaningful Use Info Meaningful Use Diagnoses (Choose all that apply): None applicable Discharge Plan Admission Admit Date/Time: 03/06/23 13:54 Attending Provider: Bentley Cabello Primary Care Provider: Lonnie Francis Consulting Providers: Damien Beckett Discharge Orders/Prescriptions Prescriptions: New azithromycin 500 mg tablet 500 mg PO DAILY 2 Days Qty: 2 0RF Rx Instructions: start on day 2 of therapy amoxicillin-pot clavulanate 875-125 mg tablet 1 tab PO Q12H 4 Days Qty: 8 0RF prednisone 20 mg tablet 40 mg PO DAILY 5 Days Qty: 10 0RF Continued gabapentin 300 MG capsule 300 mg PO BID buprenorphine-naloxone 1 EACH film 1.5 film SL DAILY amlodipine 10 mg tablet 10 mg PO DAILY lisinopril-hydrochlorothiazide 10-12.5 mg tablet 1 tab PO DAILY duloxetine 60 mg capsule,delayed release(DR/EC) 60 mg PO DAILY albuterol sulfate [Ventolin HFA] 90 mcg/actuation HFA aerosol inhaler INHALATION Referrals / Follow Up: Lonnie Francis MD [Primary Care Provider] - Within 1 Week Disposition Disposition (needs filled in before D/C Order can be placed): Home, Self Care Charges/Coding Visit Charges Inpatient E&M: 66351 Disch Hosp >30min
== END 2023-03-08 16:56 | disposition home or self-care (01) | DRG 178 ==
LOC: ED 14:33 → PCU 14:45
PROVIDERS: Admitting Provider Internal Medicine; Emergency Provider Emergency Medicine; PCP Family Medicine; Visit Provider Family Medicine
DX: J15.0 Pneumonia due to Klebsiella pneumoniae (principal); J44.1 Chronic obstructive pulmonary disease with (acute) exacerbation; J44.0 Chronic obstructive pulmonary disease with (acute) lower respiratory infection; F11.20 Opioid dependence, uncomplicated; I10 Essential (primary) hypertension; F17.210 Nicotine dependence, cigarettes, uncomplicated; G62.9 Polyneuropathy, unspecified; F41.9 Anxiety disorder, unspecified; J06.9 Acute upper respiratory infection, unspecified; F32.A Depression, unspecified; R09.02 Hypoxemia; Z51.5 Encounter for palliative care; Z66 Do not resuscitate; Z79.52 Long term (current) use of systemic steroids
CPT/HCPCS: 36415; 71046; 71275; 80048; 80053; 81001; 83735; 84100; 84443; 84484; 85025; 87070; 87077; 87186; 87205; 87428; 87449; 87633; 87635; 93005; 94640; 94668; 97161; 97166; 99285; 99406; J7030; Q9967; A4216; J0696